=== PATIENT | female | born 1950 | race Caucasian/White ===

== ENCOUNTER 2020-09-07 14:39 | Emergency (ER) | payer OTHER ==
[~2020-09-07] VITALS: Ht 167.6 cm; Wt 61.2 kg
[2020-09-07] MEDS ORDERED: PARO40TA4 MT (14:57)
[2020-09-07] MEDS ORDERED: BUPR-51 PO (14:57)
[2020-09-07] MEDS ORDERED: GABA300C PO (14:57)
[2020-09-07] MEDS ORDERED: ALPR2TAB7 PO (14:57)
--- NOTE | 2020-09-07 15:10 | NUR ---
DR. CARVALHO AT FOR EVAL.
--- NOTE | 2020-09-07 15:54 | NUR ---
BIB [facility] FROM HOME, C/O NAUSEA/VOMITING/DIARRHEA AND ANXIETY X 2 DAYS. PT ALSO C/O DEPRESSION. DENIES SI/HI AT THIS TIME. PT AAOX4, VSS. RR EVEN & UNLABORED. DENIES CP, SOB, DIZZINESS AT THIS TIME. WILL CONT TO MONITOR.
--- NOTE | 2020-09-07 16:06 | NUR ---
LABS DRAWN, COVID TEST DONE & SENT TO LAB. WILL CONT TO MONITOR.
[2020-09-07 16:10] LABS: BASOPHILS % (AUTO) 0.4 % (0.0-2.0); HEMATOCRIT 39 % (33-45); HEMOGLOBIN 13.5 g/dL (11.5-14.8); LYMPHOCYTES # (AUTO) 0.6 /CMM (0.8-4.8); LYMPHOCYTES % (AUTO) 5.2 % (20.0-44.0); MEAN CORPUSCULAR HGB CONC 34 g/dl (31.0-36.0); MEAN CORPUSCULAR VOLUME 100 fL (82-100); MONOCYTES # (AUTO) 0.6 /CMM (0.1-1.30); NEUTROPHILS # (AUTO) 10.7 /CMM (1.8-8.9); NEUTROPHILS % (AUTO) 89.4 % (43.0-81.0); PLATELET COUNT (AUTO) 319 /CMM (150-450); RED BLOOD CELL COUNT(AUTO) 3.93 MIL/uL (4.0-5.2)
--- NOTE | 2020-09-07 18:02 | NUR ---
PT RESTING, CALM & COOPERATIVE. DENIES CP, SOB, DIZZINESS, N/V AT THIS TIME. WILL CONT TO MONITOR. TAINA @ BS.
--- NOTE | 2020-09-07 18:10 | NUR ---
LAB CALLED PT COVID RESULT (-) NEGATIVE.
[2020-09-07 18:12] LABS: ALANINE AMINOTRANSFERASE 21 U/L (12-78); ALBUMIN 4.4 g/dL (3.4-5.0); ALCOHOL, BLOOD < 3 mg/dL (0-0); ALKALINE PHOSPHATASE 109 U/L (46-116); ASPARTATE AMINOTRANSFERASE 27 U/L (15-37); BILIRUBIN,DIRECT 0.2 mg/dL (0.0-0.2); BILIRUBIN,TOTAL 0.6 mg/dL (0.2-1.0); CALCIUM, SERUM 9.9 mg/dL (8.5-10.1); CARBON DIOXIDE 24 mmol/L (21-32); CHLORIDE 100 mmol/L (98-107); CREATININE 1.5 mg/dL (0.6-1.3); GLUCOSE 117 mg/dL (74-106); POTASSIUM 4.1 mmol/L (3.5-5.1); SODIUM SERUM 140 mmol/L (136-145); TOTAL PROTEIN, SERUM 7.9 g/dL (6.4-8.2); UREA NITROGEN, BLOOD 15 mg/dL (7-18)
[2020-09-07 18:21] LABS: ACETAMINOPHEN 0 ug/ml (10-30)
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
[2020-09-07] MEDS ORDERED: LORAZEPAM INJ 2 MG/ML VIAL IM ONE (20:00)
[2020-09-07 20:17] LABS: THYROID STIMULATING HORMONE 3.096 uIU/mL (0.358-3.74)
[2020-09-07] MEDS ORDERED: LORAZEPAM INJ 2 MG/ML VIAL ONE (20:59)
--- NOTE | 2020-09-07 21:04 | NUR ---
PT GETTING RESTLESS & ANXIOUS. MEDICATED PER ERMD ORDER, PT LIZETH WELL. TAINA @ BS. WILL CONT TO MONITOR.
[2020-09-07 21:18] LABS: BILIRUBIN,URINE SMALL (NEGATIVE); BLOOD, URINE LARGE Ery/uL (NEGATIVE); COLOR,URINE YELLOW (YELLOW); LEUKOCYTE ESTERASE ,URINE NEGATIVE (NEGATIVE); NITRITE, URINE NEGATIVE (NEGATIVE); PROTEIN,URINE 100 mg/dl (NEGATIVE); UGLUCOSE NEGATIVE (NEGATIVE); UROBILINOGEN,URINE 0.2 EU/dL (0.2)
[2020-09-07 21:27] LABS: BACTERIA,URINE 1+ /HPF (None Seen); RBC,URINE 51-80 /HPF (0-2); WBC,URINE 0-2 /HPF (0-3)
[2020-09-07 21:28] LABS: COARSE GRANULAR CASTS,URINE Few /LPF (None Seen); SQUAMOUS EPITHELIAL CELL,UR Few /HPF (None Seen)
--- NOTE | 2020-09-07 22:24 | NUR ---
CALLED [facility] FOR EVALATION
--- NOTE | 2020-09-07 22:35 | NUR ---
Patient is resting comfortably in bed with eyes closed. Easily aroused. VSS
--- NOTE | 2020-09-07 23:20 | NUR ---
[facility] AT BEDSIDE FOR EVALUATION
--- NOTE | 2020-09-08 02:00 | NUR ---
PT RESTING COMFORTABLY. VSS, SITTER AT BEDSIDE. WILL CONTINUE TO MONITOR.
--- NOTE | 2020-09-08 06:52 | NUR ---
daughter, justine called and left her number [phone]
--- NOTE | 2020-09-08 07:24 | NUR ---
REPORT GIVEN TO ALEIDA MACHADO FOR [facility]
[2020-09-08 07:30] VITALS: BP 135/73
--- NOTE | 2020-09-08 08:35 | NUR ---
Spoke to Melissa from [facility] apparently she forwarded clinicals to facilities and is awaiting call back. Pt directable/compliant at this time. NAD Breakfast and given toothpaste/brush after for oral care
--- NOTE | 2020-09-08 09:01 | NUR ---
[facility] CONFIRM[facility] NUMBER: [id number] ETA [id number]
--- NOTE | 2020-09-08 10:20 | NUR ---
Transfer Information: Transfer to: [facility] Unit 1 Report given to Issa by CARTER Parra Accepted by: Dr Drake Condition on transfer: Stable Report to: Ambulance Unit [facility] EMT Iván
== END 2020-09-08 10:20 ==
LOC: EDSEX 14:41 → ER 14:41
DX: R45.851 Suicidal ideations (principal); R11.2 Nausea with vomiting, unspecified; R19.7 Diarrhea, unspecified; F41.9 Anxiety disorder, unspecified; R03.0 Elevated blood-pressure reading, without diagnosis of hypertension; Z20.828 Contact with and (suspected) exposure to other viral communicable diseases
CPT/HCPCS: 36415; 80048; 80076; 80299; 80307; 80320; 81001; 84443; 85025; 87426; 96372; 99285; C9803; J2060; G0480